=== PATIENT | female | born 1945 | race Hispanic/Latino ===

== ENCOUNTER 2017-01-29 14:59 | Emergency (ER) | payer MEDICARE, BC ==
[2017-01-29 15:41] LABS: #Eosinphils 0.1 thou/uL (0.0-0.7); #Lymphocytes 1.9 thou/uL (1.20-3.40); #Monocytes 0.7 thou/uL (0.11-0.59); #Neutrophils 7.8 thou/uL (1.40-6.50); %Basophils 0.3 % (0.0-1.0); %Eosinophils 0.8 % (0.0-10.0); %Lymphocytes 18.4 % (21.0-51.0); %Monocytes 6.2 % (0.0-10.0); Hematocrit 47.8 % (36.0-47.0); Red Blood Cell (RBC) Count 5.02 mill/uL (4.20-5.40); White Blood Cell (WBC) Count 10.5 thou/uL (4.8-10.8)
--- NOTE | 2017-01-29 15:58 | RAD ---
PORTABLE CHEST ONE VIEW: 01/29/17 at 3:45 p.m. HISTORY: Bodyaches, chills, nausea. FINDINGS: The heart size is normal. There is a right subclavian Port-A-Cath with tip in the projection of the SVC. No focal areas of consolidation or pneumothorax or pleural effusions are seen. IMPRESSION: No radiographic evidence of acute cardiopulmonary process. POS: OFF
[2017-01-29 16:05] LABS: ALT (SGPT) 89 U/L (8-55); AST (SGOT) 125 U/L (5-34); Alkaline Phosphatase 137 U/L (40-150); Anion Gap 17 mmol/L (10-20); BUN (Urea Nitrogen) 18 mg/dL (9.8-20.1); Bilirubin, Total 0.8 mg/dL (0.2-1.2); CK (CPK) 38 U/L (29-168); Calc. Creatinine Clearance 0 mL/min (70-130); Calcium 10.3 mg/dL (7.8-10.44); Carbon Dioxide 20 mmol/L (23-31); Chloride 100 mmol/L (98-107); Estimated GFR-MDRD 43; Globulin 4.2 g/dL (2.4-3.5); Lipase 37 U/L (8-78); Protein, Total 8.5 g/dL (6.0-8.3)
[2017-01-29 16:09] LABS: Troponin I Less than 0.010 ng/mL (< 0.028)
[2017-01-29 17:57] LABS: Bilirubin Negative (Negative); Blood, Urine Negative (Negative); Glucose, Urine (Dipstick) >=1000 mg/dL (Negative); Ketone, Urine Negative (Negative); Nitrite Positive (Negative); Protein, Urine (Dipstick) 30 mg/dL (Neg-Trace); Urobilinogen 0.2 mg/dL (0.2-1.0)
[2017-01-29 17:59] LABS: Bacteria/HPF 4+ HPF (None Seen); Hyaline Casts/LPF 0-3 HYALINE CAST LPF (0-3 Hyaline); RBC/HPF 0-3 HPF (0-3); Squamous Epithelial 0-3 HPF (0-3)
[2017-01-29] MEDS ORDERED: Cephalexin 250 MG CAP ONE (18:47)
== END 2017-01-29 19:00 | disposition home or self-care (01) ==
LOC: ERS 14:59
DX: N39.0 Urinary tract infection, site not specified (principal); E11.9 Type 2 diabetes mellitus without complications; E03.9 Hypothyroidism, unspecified; E78.5 Hyperlipidemia, unspecified; I10 Essential (primary) hypertension; Z85.038 Personal history of other malignant neoplasm of large intestine
CPT/HCPCS: 36415; 71010; 80053; 81003; 81015; 82010; 82553; 83605; 83690; 83880; 84484; 85025; 87040; 87077; 87086; 87186; 93005; 96360; 96361

== ENCOUNTER 2018-09-08 12:20 | Emergency (ER) | payer MEDICARE, BC ==
--- NOTE | 2018-09-08 13:43 | RAD ---
PA CHEST AND LEFT RIB SERIES: HISTORY: Fall. Right-sided rib pain, chest pain FINDINGS: There is a right-sided Port-A-Cath with tip in the projection of the SVC. The heart size is normal. T he lungs are well expanded without focal areas of consolidation, pneumothoraces or pleural effusions. There are postoperative changes and metallic hardware in the lower thoracic and lumbar spi ne. THERE IS A FRACTURE INVOLVING THE LEFT SIXTH RIB.
[2018-09-08 13:47] LABS: #Eosinphils 0.2 thou/uL (0.0-0.7); #Lymphocytes 1.7 thou/uL (1.20-3.40); #Monocytes 0.8 thou/uL (0.11-0.59); #Neutrophils 7.2 thou/uL (1.40-6.50); %Basophils 0.4 % (0.0-1.0); %Eosinophils 1.7 % (0.0-10.0); %Monocytes 7.7 % (0.0-10.0); %Neutrophils 73.2 % (42.0-75.0); Hemoglobin 14.2 g/dL (12.0-16.0); Mean Corpuscular HGB CONC 33.3 g/dL (32.0-36.0); Mean Corpuscular Hemoglobin 32.2 pg (27.0-31.0); Mean Corpuscular Volume 96.7 fL (78.0-98.0); Mean Platelet Volume 10.3 fL (7.4-10.4); Platelet Count 189 thou/uL (130-400); RBC Distribution Width 12.1 % (11.5-14.5); Red Blood Cell (RBC) Count 4.43 mill/uL (4.20-5.40); White Blood Cell (WBC) Count 9.8 thou/uL (4.8-10.8)
[2018-09-08 14:02] LABS: ALT (SGPT) 47 U/L (8-55); AST (SGOT) 44 U/L (5-34); Alkaline Phosphatase 142 U/L (40-150); Anion Gap 13 mmol/L (10-20); BUN (Urea Nitrogen) 32 mg/dL (9.8-20.1); Bilirubin, Total 0.5 mg/dL (0.2-1.2); Calc. Creatinine Clearance 0 mL/min (70-130); Calcium 10.3 mg/dL (7.8-10.44); Carbon Dioxide 25 mmol/L (23-31); Chloride 98 mmol/L (98-107); Estimated GFR-MDRD 42; Glucose 303 mg/dL (83-110); Sodium 131 mmol/L (136-145)
[2018-09-08] MEDS ORDERED: Morphine 4 MG/ML VIAL ONE (15:54)
[2018-09-08] MEDS ORDERED: Ketorolac Tromethamine 60 MG/2 ML VIAL ONE (15:54)
== END 2018-09-08 16:15 | disposition home or self-care (01) ==
LOC: ERS 12:20
DX: S22.32XA Fracture of one rib, left side, initial encounter for closed fracture (principal); E11.9 Type 2 diabetes mellitus without complications; E03.9 Hypothyroidism, unspecified; E78.5 Hyperlipidemia, unspecified; I10 Essential (primary) hypertension; W01.0XXA Fall on same level from slipping, tripping and stumbling without subsequent striking against object, initial encounter
CPT/HCPCS: 36415; 80053; 85025; 93005; 96372; J1885; J2270

== ENCOUNTER 2019-05-15 11:26 | Emergency (ER) | payer MEDICARE, BC ==
[2019-05-15 12:26] LABS: #Eosinphils 0.2 thou/uL (0.0-0.7); #Lymphocytes 1.5 thou/uL (1.20-3.40); #Monocytes 0.5 thou/uL (0.11-0.59); #Neutrophils 4.4 thou/uL (1.40-6.50); %Basophils 0.7 % (0.0-1.0); %Eosinophils 3.7 % (0.0-10.0); %Monocytes 7.2 % (0.0-10.0); %Neutrophils 66.4 % (42.0-75.0); Hemoglobin 13.9 g/dL (12.0-16.0); Mean Corpuscular HGB CONC 33.5 g/dL (32.0-36.0); Mean Corpuscular Hemoglobin 31.4 pg (27.0-31.0); Mean Corpuscular Volume 93.6 fL (78.0-98.0); Mean Platelet Volume 9.5 fL (7.4-10.4); Platelet Count 156 thou/uL (130-400); RBC Distribution Width 12.7 % (11.5-14.5); Red Blood Cell (RBC) Count 4.44 mill/uL (4.20-5.40); White Blood Cell (WBC) Count 6.6 thou/uL (4.8-10.8)
[2019-05-15 12:42] LABS: ALT (SGPT) 35 U/L (8-55); AST (SGOT) 36 U/L (5-34); Albumin 3.9 g/dL (3.4-4.8); Alkaline Phosphatase 97 U/L (40-110); Anion Gap 15 mmol/L (10-20); BUN (Urea Nitrogen) 21 mg/dL (9.8-20.1); Bilirubin, Total 0.5 mg/dL (0.2-1.2); Calc. Creatinine Clearance 0 mL/min (70-130); Calcium 9.8 mg/dL (7.8-10.44); Carbon Dioxide 26 mmol/L (23-31); Chloride 100 mmol/L (98-107); Estimated GFR-MDRD 50; Globulin 3.4 g/dL (2.4-3.5); Glucose 161 mg/dL (83-110); Potassium 4.5 mmol/L (3.5-5.1); Protein, Total 7.3 g/dL (6.0-8.3); Sodium 136 mmol/L (136-145)
[2019-05-15 13:00] LABS: Bacteria/HPF 2+ HPF (None Seen); Bilirubin Negative (Negative); Blood, Urine Negative (Negative); Clarity Turbid (Clear); Glucose, Urine (Dipstick) Greater than 1000 mg/dL (Negative); Leukocyte 500 Leu/uL (Negative); Nitrite Negative (Negative); Protein, Urine (Dipstick) Negative (Neg-Trace); RBC/HPF 0-3 HPF (0-3); Squamous Epithelial None Seen HPF (0-3); Urobilinogen Normal mg/dL (Less than 2); WBC/HPF Greater than 50 HPF (0-3)
--- NOTE | 2019-05-15 13:39 | CT ---
EXAM: CT Lumbar Spine WO Con PROVIDED CLINICAL HISTORY: Back pain COMPARISON: 12/19/2016 FINDINGS: Extensive postoperative and degenerative changes involving the lumbar spine are redemonstrated, stabl e. There is no evidence for an acute fracture. There is stable central canal stenosis at L1-2 and stable foraminal narrowing most conspicuous bilaterally at L5-S1. IMPRESSION: No evidence for an acute fracture.
[2019-05-15] MEDS ORDERED: cefTRIAXone\\ROCEPHIN 1 GM VIAL ONE (14:10)
[2019-05-15] MEDS ORDERED: HYDROcodone/Acetaminophen 10/325 mg Tablet ONE (14:23)
== END 2019-05-15 15:29 | disposition home or self-care (01) ==
LOC: ERS 11:26
DX: N39.0 Urinary tract infection, site not specified (principal); R53.1 Weakness; M54.5 Low back pain; E11.9 Type 2 diabetes mellitus without complications; E03.9 Hypothyroidism, unspecified; E78.5 Hyperlipidemia, unspecified; E78.00 Pure hypercholesterolemia, unspecified; I10 Essential (primary) hypertension
CPT/HCPCS: 72131; 80053; 81003; 81015; 85025; 87077; 87086; 87186; 96365; J0696

== ENCOUNTER 2019-05-23 10:58 | Observation (INO) | payer MEDICARE, BC ==
[2019-05-23] MEDS ORDERED: Morphine 4 MG/ML VIAL ONE (12:04)
[2019-05-23] MEDS ORDERED: Ondansetron PF 4 MG/2 ML Vial ONE (12:04)
[2019-05-23 12:23] LABS: #Basophils 0.1 thou/uL (0.0-0.2); #Eosinphils 0.2 thou/uL (0.0-0.7); #Lymphocytes 1.3 thou/uL (1.20-3.40); #Monocytes 0.6 thou/uL (0.11-0.59); %Basophils 0.8 % (0.0-1.0); %Lymphocytes 14.2 % (21.0-51.0); %Monocytes 6.6 % (0.0-10.0); %Neutrophils 76.4 % (42.0-75.0); Hemoglobin 14.4 g/dL (12.0-16.0); Mean Corpuscular HGB CONC 32.8 g/dL (32.0-36.0); Mean Corpuscular Hemoglobin 31.1 pg (27.0-31.0); Mean Corpuscular Volume 94.7 fL (78.0-98.0); Mean Platelet Volume 10.2 fL (7.4-10.4); Platelet Count 152 thou/uL (130-400); RBC Distribution Width 12.9 % (11.5-14.5); Red Blood Cell (RBC) Count 4.63 mill/uL (4.20-5.40); White Blood Cell (WBC) Count 9.1 thou/uL (4.8-10.8)
[2019-05-23 12:52] LABS: ALT (SGPT) 36 U/L (8-55); AST (SGOT) 43 U/L (5-34); Alkaline Phosphatase 102 U/L (40-110); Anion Gap 14 mmol/L (10-20); BUN (Urea Nitrogen) 25 mg/dL (9.8-20.1); Bilirubin, Total 0.4 mg/dL (0.2-1.2); Calc. Creatinine Clearance 0 mL/min (70-130); Calcium 9.8 mg/dL (7.8-10.44); Carbon Dioxide 27 mmol/L (23-31); Chloride 98 mmol/L (98-107); Estimated GFR-MDRD 52; Globulin 3.7 g/dL (2.4-3.5); Glucose 296 mg/dL (83-110); Lipase 29 U/L (8-78); Potassium 4.1 mmol/L (3.5-5.1); Protein, Total 7.7 g/dL (6.0-8.3); Sodium 135 mmol/L (136-145)
--- NOTE | 2019-05-23 13:08 | RAD ---
EXAM: 2 views of the left hip HISTORY: Left hip pain COMPARISON: 12/18/2016 FINDINGS: 2 views of the left hip shows no evidence of acute fracture or dislocation. No degenerative changes are seen. No soft tissue swelling is present. Hardware seen in the lumbar spine. IMPRESSION: No evidence of acute osseous abnormality.
--- NOTE | 2019-05-23 13:11 | RAD ---
EXAM: 2 views of the right hip HISTORY: Right hip pain COMPARISON: None FINDINGS: 2 views of the right hip shows no evidence of acute fracture or dislocation. No degenerativ e changes are seen. No soft tissue swelling is present. Hardware seen in the lumbar spine. IMPRESSION: No evidence of acute osseous abnormality.
--- NOTE | 2019-05-23 13:11 | RAD ---
EXAM: 4 views of the left knee HISTORY: Knee pain COMPARISON: None FINDINGS: No knee effusion is seen. There is no evidence of acute fracture or dislocation. No signifi cant degenerative changes are seen. No soft tissue swelling is present. IMPRESSION: No evidence of acute osseous abnormality.
[2019-05-23 16:24] LABS: Bilirubin Negative (Negative); Blood, Urine Negative (Negative); Clarity Clear (Clear); Glucose, Urine (Dipstick) Greater than 1000 mg/dL (Negative); Leukocyte 75 Leu/uL (Negative); Nitrite 1+ (Negative); Protein, Urine (Dipstick) Negative (Neg-Trace); RBC/HPF 0-3 HPF (0-3); Squamous Epithelial 0-3 HPF (0-3); Urobilinogen Normal mg/dL (Less than 2)
[2019-05-23 16:33] LABS: Bacteria/HPF 3+ HPF (None Seen)
[2019-05-23] MEDS ORDERED: Ketorolac Tromethamine 30 MG/ML VIAL ONE (16:40)
[2019-05-23] MEDS ORDERED: Sulfameth/Trimethoprim DS 800-160mg TAB ONE ×2 (16:57→17:02)
[2019-05-23] MEDS ORDERED: MEROPENEM 1 GM/50 ML 1 GM in Premix Bag 1 BAG IVPB SCH (18:45)
[2019-05-24 01:26] VITALS: BMI 37.2
[2019-05-24] MEDS ORDERED: Sodium Chloride 0.9% 1,000 ML IV SCH (03:57)
[2019-05-24] MEDS ORDERED: MEROPENEM 1 GM/50 ML 1 GM in Premix Bag 1 BAG IVPB SCH ×2 (04:00→22:00)
[2019-05-24] MEDS: HYDROcodone/Acetaminophen 10/325 mg Tablet PO PRN ×4 (04:20→18:41)
[2019-05-24 15:27] VITALS: BP 122/77; TEMP 98.4
[2019-05-24] MEDS ORDERED: HYDROcodone/Acetaminophen 10/325 mg Tablet PO PRN (15:47)
--- NOTE | 2019-05-24 15:57 | PDOC.EVN ---
Event Note - Event Note Event Note: pt admitted for fall and UTI u grecia E.coli, sensitivity pending. received merum last night. on ceftriaxone now until sensitivity back. meanwhile, there is a plan to transfer her to inpt rehab. Request inpt rehab physician to follow with grecia result and titrate the abx. H & P dictated. [id number].
[2019-05-24] MEDS ORDERED: cefTRIAXone\\ROCEPHIN 1 GM in Sodium Chloride 0.9% 100 ML IVPB SCH (16:00)
[2019-05-24] MEDS ORDERED: Rosuvastatin 10 MG TAB PO SCH (21:00)
[2019-05-24] MEDS ORDERED: Pregabalin 75 MG CAP PO SCH (21:00)
[2019-05-24] MEDS ORDERED: tiZANidine HCl 4 MG TAB PO SCH (21:00)
--- NOTE | 2019-05-24 23:26 | HP ---
CHIEF COMPLAINT: Fall. HISTORY OF PRESENT ILLNESS: A 73-year-old female with history of type 2 diabetes mellitus, hypertension, and history of colon cancer status post colectomy in 2016 and completed her chemo in July 2017, presenting with the fall. Roughly a week ago, she had an accidental fall and at that time, she came to the ER and discharged with antibiotics for urinary tract infection. Since then, she was not getting better. She had a repeated fall 3 times this week. The patient has no history of stroke in the past. No fever, cough, chest pain or short of breath or headache or blurriness. She is now admitted with fall and UTI. REVIEW OF SYSTEMS: Complete review of systems reviewed with the patient and pertinence addressed in history of present illness. She does not have any recent fever, night sweats, or chills. No productive cough, chest pain, orthopnea, PND , or lower extremity edema. No abdominal pain, nausea, vomiting, constipation, or diarrhea. Denies any headache or blurriness. ALLERGIES: SHE HAS NO KNOWN DRUG ALLERGIES. MEDICATIONS: She is on; 1. Cilostazol 100 mg daily. 2. Cymbalta 60 mg at bedtime. 3. Glipizide 10 mg twice a day. 4. Lisinopril hydrochlorothiazide 10/12.5 mg daily. 5. Levothyroxine 50 mcg daily. 6. Pantoprazole sodium 40 mg daily. 7. Pregabalin 75 mg twice a day. 8. Crestor 10 mg daily. 9. Tizanidine unknown dose at bedtime. SOCIAL HISTORY: The patient does not smoke or drink alcohol. PAST MEDICAL HISTORY: Type 2 diabetes mellitus, hypertension, history of colon cancer diagnosed in Aug, 2016 and completed chemo in July,. PAST SURGICAL HISTORY: Colon dissection. PHYSICAL EXAMINATION: VITAL SIGNS: Temperature 98.4, pulse 98, blood pressure is 107/67, saturating 100% in the room air. GENERAL: The patient is alert, oriented x4. She is slightly on the obese side. Very pleasant, conversational, spouse at the bedside. CARDIOVASCULAR: Regular rate and rhythm without murmurs, rubs, or gallops. LUNGS: Clear to auscultation bilaterally without wheezing, rales, or rhonchi. ABDOMEN: Soft, nontender, nondistended. Good bowel sounds. EXTREMITIES: Her upper extremity strength and sensation grossly intact. Lower extremities; left lower leg 1/5 in strength. Able to lift her right leg against gravity. NEUROLOGIC: Cranial nerves 2 through 12 grossly intact. No dysarthria. No nystagmus. PSYCHIATRIC: Appropriate mood and affect. LABORATORY DATA: CMP in the normal range. Troponin 0.01. Lipase 29. CBC in the normal range. UA showed glucosuria as well as esterase and nitrite positive and 3+ bacteria. Knee x-ray showed no evidence of acute osseous abnormality. Hip x-ray showed also no evidence of fracture or subluxation. IMPRESSION AND PLAN: This is a 73-year-old female with a frequent fall and urinary tract infection, admitted for observation. She received a dose of Merrem during admission. Physical therapy evaluated her. Planned for inpatient rehab. Urinary tract infection. Her UA already grew Escherichia coli. She has no previous history of urinary tract infection other than remotely during the time of chemo. So, we will give her ceftriaxone and follow the urine culture results. Type 2 diabetes mellitus. Continue with the home regimen as well as sliding scale and diabetic diet. The patient likely to be transferred to inpatient rehab. I request the rehab physician to follow the urine culture results and sensitivity, currently growing Escherichia coli sensitivity pending. She will be on ceftriaxone 1 g daily. Rest of the management based on the clinical course at the rehab. Job ID: [id number] [facility]
[2019-05-25] MEDS ORDERED: Levothyroxine Sodium 50 MCG TAB PO SCH (06:00)
[2019-05-25] MEDS ORDERED: Cilostazol 100 MG TAB PO SCH (09:00)
[2019-05-25] MEDS ORDERED: DULoxetine 60 MG CAP PO SCH (09:00)
[2019-05-25] MEDS ORDERED: Empagliflozin [Jardiance] 25 MG PO SCH (09:00)
[2019-05-25] MEDS ORDERED: Lisinopril/Hydrochlorothiazide 10 mg/12.5 mg Tablet PO SCH (09:00)
== END 2019-05-24 19:15 ==
LOC: ERS 10:58 → SURG A 05-24 00:49
PROVIDERS: ADMIT Hospitalist; ATTEND Hospitalist
DX: N39.0 Urinary tract infection, site not specified (principal); B96.20 Unspecified Escherichia coli [E. coli] as the cause of diseases classified elsewhere; E11.9 Type 2 diabetes mellitus without complications; I10 Essential (primary) hypertension; E03.9 Hypothyroidism, unspecified; Z85.038 Personal history of other malignant neoplasm of large intestine; Z91.81 History of falling; Z79.84 Long term (current) use of oral hypoglycemic drugs; Z79.899 Other long term (current) drug therapy; Z90.49 Acquired absence of other specified parts of digestive tract
CPT/HCPCS: 73502 ×2; 73564; 80053; 82962; 83690; 84484; 85025; 87077; 87086; 87186; 93005; 96361 ×2; 96365; 96366; 96375 ×2; 97139; 99285; G0378 ×3; 36416; 81003; 81015; J0696; J1885; J2185; J2270; J2405; J3490

== ENCOUNTER 2019-06-30 16:11 | Inpatient (IN) | payer MEDICARE, BC ==
[2019-06-30 16:51] LABS: #Basophils 0.1 thou/uL (0.0-0.2); #Eosinphils 0.3 thou/uL (0.0-0.7); #Lymphocytes 1.9 thou/uL (1.20-3.40); #Monocytes 0.7 thou/uL (0.11-0.59); #Neutrophils 4.7 thou/uL (1.40-6.50); %Basophils 0.8 % (0.0-1.0); %Eosinophils 4.1 % (0.0-10.0); %Lymphocytes 24.7 % (21.0-51.0); %Monocytes 8.5 % (0.0-10.0); %Neutrophils 61.9 % (42.0-75.0); Hemoglobin 14.1 g/dL (12.0-16.0); Mean Corpuscular Hemoglobin 31.8 pg (27.0-31.0); Mean Corpuscular Volume 96.4 fL (78.0-98.0); Mean Platelet Volume 8.9 fL (7.4-10.4); Platelet Count 236 thou/uL (130-400); RBC Distribution Width 13.1 % (11.5-14.5); Red Blood Cell (RBC) Count 4.44 mill/uL (4.20-5.40); White Blood Cell (WBC) Count 7.7 thou/uL (4.8-10.8)
[2019-06-30 17:02] LABS: INR-International Normal Ratio 0.9; Prothrombin Time 12.4 SEC (12.0-14.7)
[2019-06-30 17:03] LABS: PTT 28.7 SEC (22.9-36.1)
[2019-06-30 17:16] LABS: ALT (SGPT) 22 U/L (8-55); AST (SGOT) 31 U/L (5-34); Albumin 4.1 g/dL (3.4-4.8); Alkaline Phosphatase 103 U/L (40-110); Anion Gap 16 mmol/L (10-20); BUN (Urea Nitrogen) 18 mg/dL (9.8-20.1); Bilirubin, Total 0.5 mg/dL (0.2-1.2); Calc. Creatinine Clearance 0 mL/min (70-130); Calcium 9.7 mg/dL (7.8-10.44); Carbon Dioxide 22 mmol/L (23-31); Chloride 101 mmol/L (98-107); Estimated GFR-MDRD 46; Globulin 3.8 g/dL (2.4-3.5); Glucose 136 mg/dL (83-110); Protein, Total 7.9 g/dL (6.0-8.3); Sodium 135 mmol/L (136-145)
[2019-06-30] MEDS ORDERED: Morphine 4 MG/ML VIAL ONE ×2 (17:27→19:14)
[2019-06-30] MEDS ORDERED: Ondansetron PF 4 MG/2 ML Vial ONE (17:27)
--- NOTE | 2019-06-30 22:02 | CON ---
DATE OF CONSULTATION: 06/30/2019 CHIEF COMPLAINT: Low back pain, impaired mobility, bilateral lower extremity pain and paresthesias. HISTORY OF PRESENT ILLNESS: Ms. Hurley is a very pleasant 73-year-old female who presented to the emergency department today for evaluation of the above complaints. The patient's family members are at bedside and provide additional history. The patient reports that she has had increased leg weakness, numbness, and pain over the last month and a half. She states that approximately a month and half ago, she incurred 2 falls due to her legs giving out. After her 2nd fall, she presented for evaluation and had a CT of the lumbar spine completed that showed hardware in place, but no acute abnormalities. The patient was referred to Dr. Elmore for further outpatient evaluation and has appointment scheduled for june. The patient has previously seen Dr. Elmore for surgical management, with most recent surgery being an L1-L2 laminectomy decompression and extension of prior fusion in 2014. The patient states that she has had a total of 4 lumbar surgeries. Her 1st fusion surgery was in 2005 and she reports that her hardware placed at that time is not MRI compatible. The patient was admitted to the hospital in mid April for falls and urinary tract infection. She was treated with antibiotics and then discharged to [facility]. She states that she was at [facility] for approximately 2 weeks and then transferred to a facility in [place] for further inpatient rehab and physical therapy. She remains at this facility currently. Prior to a month and a half ago, patient was ambulating without difficulty. Since then, her leg weakness has caused her to no longer be able to walk, stating her legs give out from underneath her. At rehab, she has only been able to stand with assistance and only take a few steps. She cannot walk more than a few feet. Currently, she reports pain across her lower back and into her bilateral hip. The pain radiates into both legs, localized to the anterior thighs and mendez. She also reports left greater than right leg weakness. She reports nondermatomal numbness throughout her right leg, as well as numbness from the knee down in her left leg. The patient states that over this time frame, she has also had urinary incontinence, but no bowel incontinence. She has been wearing diapers for this. PHYSICAL EXAMINATION: VITAL SIGNS: On exam, the patient is awake, alert, and appropriate, A and O x3. MUSCULOSKELETAL: The patient exhibits midline tenderness to palpation of her cervical, thoracic, and lumbar spines. She also exhibits to bilateral paralumbar tenderness to palpation across her lower back. Strength testing of the legs is quite limited secondary to pain, however, patient seems to exhibit good strength in both legs despite pain with range of motion. No significant weakness noted. The patient has good strength with dorsiflexion and plantar flexion of both feet. Sensation to light touch is intact and equal in her bilateral lower extremities. The patient has positive straight leg raise at 30 degrees on the left and 45 degrees on the right. Gait was not tested. PAST MEDICAL HISTORY: Includes diabetes mellitus, hypertension, hypothyroidism, colon cancer, obesity. PAST SURGICAL HISTORY: Total of 4 prior lumbar spine surgeries including fusion with hardware placement, cholecystectomy, colectomy, tubal ligation. ALLERGIES: NO KNOWN DRUG ALLERGIES REPORTED. IMPRESSION/DIAGNOSES: 1. Low back pain with gait disturbance and bilateral leg pain and paresthesias. 2. History of multiple lumbar surgeries with instrumented fusion. 3. Recent urinary tract infection, treated with antibiotics. 4. Diabetes mellitus. 5. Hypertension. 6. Hypothyroidism. 7. History of colon cancer, treated with colectomy and chemotherapy. PLAN: At this time, I have discussed this case and reviewed recent imaging with Dr. Nieves. The patient had a CT of the lumbar spine completed on 05/15/2019 that showed a hardware in place from L1-S1. No evidence for acute fractures or other acute abnormalities. The patient's symptoms have persisted and worsened over the last month and a half since her CT scan was completed. She has not experienced significant improvement over the past week's inpatient rehab with intensive therapies. At this time, recommend be admitted to the medical floor for pain control, medical management, and further workup to evaluate, if neurosurgical intervention is necessary. The patient states that she is unable to obtain an MRI of the lumbar spine given her lumbar hardware placed in 2005 is not MRI compatible. I have ordered a CT myelogram of the lumbar spine to be completed for further evaluation. The patient and her family members were informed of this plan. They state understanding and all questions have been answered at this time. Our team will re-evaluate the patient in the morning and await CT myelogram findings. Please call for any neurologic changes or other concerns. This was a 50 minute initial consult note in which greater than 50% of the time was spent in review of records, imaging, evaluation, examination of the patient, and formulation of plan. The remaining time was spent in counseling and coordination of care. Job ID: [id number]
[2019-06-30 22:12] LABS: Bilirubin Negative (Negative); Blood, Urine Negative (Negative); Clarity Clear (Clear); Glucose, Urine (Dipstick) Greater than 1000 mg/dL (Negative); Leukocyte Negative Leu/uL (Negative); Nitrite Negative (Negative); Protein, Urine (Dipstick) Negative (Neg-Trace); Urobilinogen Normal mg/dL (Less than 2)
[2019-06-30 22:51] VITALS: BMI 37.5
[2019-07-01] MEDS ORDERED: Acetaminophen 650 MG Suppository PR PRN (00:32)
[2019-07-01] MEDS ORDERED: Acetaminophen 325 MG TAB PO PRN (00:32)
[2019-07-01] MEDS ORDERED: Dextrose 50% Abboject 50 ML SYRINGE SLOW IVP PRN (00:35)
[2019-07-01] MEDS ORDERED: Dextrose 5% in Water 1,000 ML IV PRN (00:35)
[2019-07-01] MEDS ORDERED: Pregabalin 75 MG CAP PO SCH (00:45)
[2019-07-01] MEDS: HYDROcodone/Acetaminophen 5/325 mg Tablet PO PRN ×7 (00:57→23:37)
[2019-07-01] MEDS: Sodium Chloride 0.9% 1,000 ML IV SCH ×2 (00:58→20:04)
--- NOTE | 2019-07-01 01:58 | HP ---
TIME OF ASSESSMENT: 0. PRIMARY CARE PHYSICIAN: Dr. Selam Gilbert. CHIEF COMPLAINT: Back pain and urinary incontinence. HISTORY OF PRESENT ILLNESS: Ms. Hurley is a 73-year-old woman who presents to the emergency department with complaints of persisting low back pain and lower extremity pain with weakness and numbness. The patient states she has long-standing history of peripheral neuropathy, however, the weakness in her legs has continued to worsen. She has had multiple falls in the last 2 to 3 months. She was last seen in the emergency department on 05/15/2019 and 05/24/2019, due to falls. The patient states she was told she had a urinary tract infection which was treated after the 1st visit. When she returned a second time, she states she was told she needed a different kind of antibiotic and did undergo imaging studies that showed no acute fractures. The patient was referred to outpatient rehab in [place] and she states she has been unable to walk for the last month. She has been using a wheelchair to get around and when she does stand, she feels as though her legs were going to give out underneath her. Reports having a fall on Friday, states she stood up and fell to her knees. Reports having urinary incontinence, but does not recall since one. States she has numbness in the groin, but no numbness or tingling in the buttocks or perirectal region. She has not had any issues with urinary incontinence. She has a history of chronic back pain and has had back surgeries in the past. ED COURSE: In the emergency department, she underwent laboratory studies showing a white count of 7.7, hemoglobin of 14.1, hematocrit 42.8, platelets 236. Sodium 135, potassium 4.1, BUN 18, creatinine 1.16, GFR 46. Glucose 136. LFTs unremarkable. She had urinalysis done showing glucose greater than 1000 and otherwise, negative. Her pain was treated with 4 mg of morphine IV x2. She was also given Zofran for nausea. Her case was discussed with Neurosurgery. She was evaluated by Neurosurgery and due to history of lumbar hardware that is not MRI compatible, a CT myelogram of the lumbar spine was ordered. The patient was recommended to be admitted under our service given her comorbidities. PAST MEDICAL HISTORY: 1. Diabetes type 2. 2. Hypothyroidism. 3. Hyperlipidemia. 4. Hypertension. 5. History of colon cancer, completed chemotherapy in June 2016. 6. Chronic back pain. PAST SURGICAL HISTORY: 1. Colon resection. 2. Cholecystectomy. 3. Back surgery x4. 4. Tubal ligation. SOCIAL HISTORY: The patient has been mobilizing with the use of a wheelchair. She lives with family. Reports social alcohol consumption. Denies any tobacco use or illicit drug use. FAMILY HISTORY: Noncontributory. ALLERGIES: NO KNOWN DRUG ALLERGIES. CURRENT MEDICATIONS: 1. Levothyroxine. 2. Celecoxib. 3. Pantoprazole. 4. Lisinopril/hydrochlorothiazide. 5. Cilostazol. 6. Glipizide. 7. Hydrocodone/acetaminophen. 8. Pregabalin. 9. Rosuvastatin. 10. Duloxetine. 11. Jardiance. 12. Tizanidine. PHYSICAL EXAMINATION: GENERAL: The patient appears well developed, well nourished, is in no acute distress. VITAL SIGNS: Temperature 97.8, pulse 97, blood pressure 112/64, respirations 18, O2 saturation 96% on room air. HEENT: Normocephalic and atraumatic. Pupils are equal, round, reactive to light. Sclerae without icterus. Oropharynx is clear. NECK: Supple. LUNGS: Clear to auscultation bilaterally without any wheezes, rales, or rhonchi. CARDIAC: Regular rate and rhythm. ABDOMEN: Soft, obese, nontender, nondistended. Normoactive bowel sounds present. No guarding or rigidity. No renal angle tenderness. EXTREMITIES: No lower extremity edema. Mechanical SCDs in place. Peripheral pulses equal bilaterally. NEUROLOGIC: Alert and oriented x3. The patient with reduced sensation involving both lower extremities. She has diffuse tenderness to the lower extremities. She is able to raise both legs, unable to plantarflex and extend against resistance, though somewhat limited due to the pain in her legs. Strength appears to be intact. Able to straight leg raise bilaterally, however, slightly more limited on the right. SKIN: Warm and dry. INVESTIGATIONS: As mentioned above in HPI. IMPRESSION AND PLAN: Ms. Hurley is a 73-year-old woman presenting with back pain, lower extremity pain, worsening weakness, and urinary incontinence, being admitted for management of the followin. Low back pain with associated urinary incontinence. The patient is seen by Neurosurgery and has a known history of lumbar surgeries with MRI incompatible hardware. CT myelogram ordered. Further recommendations as per Surgery. We will obtain a bladder scan to ensure she is not retaining urine and requiring [place] catheter. Per Dr. Cano . 2. Hypertension. Monitor blood pressure. Resume home medications once verified. 3. Diabetes mellitus. Monitor blood glucose and resume home medications once verified. The patient will be kept n.p.o. by Surgery; therefore, we will likely hold her home medications and cover with sliding scale. 4. Hypothyroidism. Check TSH with morning labs. Resume home medications once verified. 5. History of colon cancer, treated with colectomy and chemotherapy. 6. Gastrointestinal prophylaxis. Resume pantoprazole which she takes at home. 7. Deep venous thrombosis prophylaxis. The patient has mechanical SCDs in place. 8. Code status, full. Surrogate decision maker is her daughter, Barbara Hurley. Case discussed with attending who agrees with plan of care as described above. Job ID: [id number]
[2019-07-01] MEDS: Levothyroxine Sodium 50 MCG TAB PO SCH (05:12)
[2019-07-01 05:29] LABS: #Basophils 0.1 thou/uL (0.0-0.2); #Eosinphils 0.3 thou/uL (0.0-0.7); #Lymphocytes 1.2 thou/uL (1.20-3.40); #Monocytes 0.5 thou/uL (0.11-0.59); #Neutrophils 3.7 thou/uL (1.40-6.50); %Basophils 1.1 % (0.0-1.0); %Eosinophils 4.5 % (0.0-10.0); %Lymphocytes 21.4 % (21.0-51.0); %Monocytes 8.3 % (0.0-10.0); %Neutrophils 64.8 % (42.0-75.0); Hemoglobin 12.1 g/dL (12.0-16.0); Mean Corpuscular HGB CONC 31.7 g/dL (32.0-36.0); Mean Corpuscular Hemoglobin 30.6 pg (27.0-31.0); Mean Corpuscular Volume 96.4 fL (78.0-98.0); Mean Platelet Volume 8.8 fL (7.4-10.4); Platelet Count 188 thou/uL (130-400); Red Blood Cell (RBC) Count 3.97 mill/uL (4.20-5.40); White Blood Cell (WBC) Count 5.7 thou/uL (4.8-10.8)
[2019-07-01 05:51] LABS: Anion Gap 10 mmol/L (10-20); BUN (Urea Nitrogen) 20 mg/dL (9.8-20.1); Calc. Creatinine Clearance 75 mL/min (70-130); Calcium 9.1 mg/dL (7.8-10.44); Carbon Dioxide 27 mmol/L (23-31); Chloride 102 mmol/L (98-107); Estimated GFR-MDRD 70; Glucose 140 mg/dL (83-110); Potassium 4.1 mmol/L (3.5-5.1); Sodium 135 mmol/L (136-145)
[2019-07-01] MEDS: Cilostazol 100 MG TAB PO SCH (08:42)
[2019-07-01] MEDS: DULoxetine 60 MG CAP PO SCH (08:42)
[2019-07-01] MEDS: Lisinopril/Hydrochlorothiazide 10 mg/12.5 mg Tablet PO SCH (08:43)
[2019-07-01] MEDS: Pregabalin 75 MG CAP PO SCH ×2 (08:47→20:02)
--- NOTE | 2019-07-01 09:25 | PRG ---
DATE OF SERVICE: 07/01/2019 SUBJECTIVE: The patient is seen and examined at the bedside. She still complains about the pain and numbness in her both lower extremities. She is getting ready for her CT myelogram testing done this morning. She is n.p.o. OBJECTIVE: VITAL SIGNS: Blood pressure is 121/76, pulse is 92, respirations are 16, temperature is 98.0, O2 saturation is 97% on room air. HEENT: Head is atraumatic and normocephalic. Eyes are PERRLA. Sclerae are nonicteric. Oral mucosa is moist. NECK: Supple. LUNGS: Clear. HEART: S1 and S2 normal. No S3. No S4. No any murmur. ABDOMEN: Soft, nontender. Bowel sounds are present. No organomegaly. EXTREMITIES: No clubbing, cyanosis, or edema. NEUROLOGICAL: She is alert and oriented x4. There is decreased motor function in both lower extremities secondary to bilateral lower extremity pain. There are some sensory deficits in both lower extremities below both groins. She follows my commands. LABORATORY DATA: White count of 5.7, hemoglobin of 12.1, hematocrit of 38.2, platelet count is 188,000. Sodium of 135, glucose 140. The rest of chemistry within normal limits. TSH is 2.78. IMPRESSION: 1. Low back pain with gait disturbance and bilateral leg pain and paresthesias. 2. Diabetes mellitus. 3. Hypertension. 4. Hypothyroidism. 5. History of colon cancer, treated with colectomy and chemotherapy. PLAN: The patient is scheduled for a CT myelogram per Neurosurgery recommendation. We will follow up on that. We will continue p.r.n. pain management. We will get PT and OT when it is allowed per Neurosurgery. Job ID: [id number]
[2019-07-01] MEDS: HumaLOG 300 UNITS/3 ML VIAL SC PRN ×3 (12:36→21:15)
--- NOTE | 2019-07-01 13:00 | RAD ---
LUMBAR SPINE MYELOGRAM: DATE: 07/01/2019. HISTORY: Impaired mobility with low back pain and bilateral lower extremity pain/radiculopathy. FINDINGS: Thinner Sprayer imaging of the lumbar spine demonstrates extensive postoperative hardware including bilateral L 2, L3, L4, L5, and S1 pedicle screws with vertically oriented interlocking rods. There is also a pedicle screw on the left at L1 which is fractured. The left L4 pedicle screw appears lateral to the pedicle. There is severe multilevel degenerative change with multilevel disc space narrowing, degenerative end plate change, and osteophyte formation. There is also prominent disc space narrowing with degenerative endplate change vacuum disc formation and osteophyte formation at T11-12. Informed consent obtained prior to the procedure. The skin overlying the lumbar spine was prepped and draped in normal sterile fashion and anesthetized with 1% buffered lidocaine. With intermittent fluoroscopic guidance, a 22-gauge spinal needle is advanced into the thecal sac at the L5 level and r emoval of the stylet yields clear cerebrospinal fluid. Approximately 10 cc of Isovue 180 was injected, outlining nerve roots of the cauda equina and filling the thecal sac. The patient's head wa s tilted down to extend some contrast media into the upper lumbar spine. There is severe central canal stenosis with partial blockage of the contrast column at the L2 level suggesting severe underly ing stenosis. Patient tolerated the procedure well. Exposure data: One minute of fluoroscopic time, 1243.8 mGy*^m2. IMPRESSION: Severe degenerative change and multilevel postoperative change. Detailed assessment for central canal and/or neural foraminal stenosis will be better performed on CT myelogram to follow. Transcribed Date/Time: 07/01/2019 1:17 PM
[2019-07-01] MEDS ORDERED: Baclofen 10 MG TAB PO SCH (13:15)
--- NOTE | 2019-07-01 14:02 | CT ---
LUMBAR SPINE CT MYELOGRAM: Date: 07/01/2019 HISTORY: Bilateral lower extremity pain and radiculopathy. FINDINGS: Following the intrathecal administration of iodinated contrast media, axial CT imaging at 2.5 mm inte rvals obtained from the lower thoracic spine through the sacrum. Coronal and sagittal reformatted carlos ging obtained. FINDINGS: The bones appear markedly demineralized. There is mild anterolisthesis at L4-5 which measures approximately 5-6 mm. At T11-12, there is prominent disc space narrowing with prominent degenerative end plate change and v acuum disc formation, as well as disc osteophyte complex and bilateral prominent facet hypertrophy. T hese degenerative changes lead to severe central canal stenosis and severe bilateral neural foraminal stenosis at T11-12. T12-L1: Bilateral facet hypertrophy. Mild bilateral neural foraminal stenosis. No significant centra l canal stenosis. There is a remote anterior wedge compression fracture at L1 primarily involving the inferior aspect o f the L1 vertebral body with approximately 65% loss of vertebral body height anteriorly. L1-2: There is disc space narrowing and degenerative end plate change with a disc osteophyte complex . There is severe bilateral facet hypertrophy. There is severe central canal stenosis and severe bila teral neural foraminal stenosis at the L1-2 level. L2-3: Bilateral laminectomy changes are present with no significant central canal stenosis. Bilateral facet hypertrophy is present with mild/moderate bilateral neural foraminal stenosis, right greater than left. L3-4: Bilateral laminectomy change present with no significant central canal stenosis. There is disc space narrowing with mild disc bulge. No central canal stenosis. Bilateral facet hypertrophy noted, right greater than left, with mild/moderate bilateral neural foraminal stenosis. L4-5: There is disc space narrowing and mild degenerative end plate change, as well as bilateral fac et hypertrophy with mild/moderate bilateral neural foraminal stenosis. No significant central canal s tenosis. L5-S1: There is disc space narrowing with degenerative end plate change and vacuum disc formation. T here is a disc osteophyte complex with mild central canal stenosis. There is prominent bilateral face t hypertrophy with severe bilateral neural foraminal stenosis. There is extensive postoperative hardware within the lumbar spine. This includes bilateral pedicle sc rews at L2, L3, L4, L5, and S1. There are vertically oriented interlocking rods. There is fracture of the base of the screw posteriorly involving the left S1 level. The left L4 pedicle screw is located just lateral to the left pedicle. The L2 pedicle screw on the left extends into the region of the subcortical bone/intervertebral disc at the L1-2 level. The hardware also includes a left-sided pedicle screw at L1, which is fractured. There is scattered atherosclerotic calcification of the abdominal aorta and its branches, relatively mild. The imaged retroperitoneal structures appear grossly unremarkable otherwise. No acute lumbar sp ine fracture or dislocation. The anterior aspect of the L2 pedicle screw on the right extends to the level of the superior end madhu te of L2. IMPRESSION: Multilevel postoperative change as above. The L1 and S1 left-sided pedicle screws are fractured. Bila teral L2 pedicle screws extend into the region of the intervertebral disc. There is severe degenerati ve change with multilevel prominent central canal and neural foraminal stenosis. This includes severe central canal stenosis and bilateral neural foraminal stenosis at the T11-12 level, as well as the L 1-2 level. BRIE Espitia
[2019-07-01] MEDS ORDERED: Iopamidol-M 200 41% 20 ML VIAL ONE (14:45)
[2019-07-01] MEDS: Acetaminophen/Codeine 30-300mg Tablet PO PRN (17:58)
[2019-07-01] MEDS: Baclofen 10 MG TAB PO SCH (20:02)
[2019-07-01] MEDS: Rosuvastatin 10 MG TAB PO SCH (20:02)
--- NOTE | 2019-07-01 22:58 | PRG ---
DATE OF SERVICE: 07/01/2019 Ms. Hurley's condition remains stable from yesterday. She had a CT myelogram of the lumbar spine completed today. I have reviewed this with Dr. Nieves. The study showed findings of hardware instrumentation at the level of L1 through S1. Left pedicle screw is fractured. L1 compression fracture present. There is component of central canal stenosis at L1-L2. Multilevel degenerative changes and disk space narrowing present. Additionally, [id number] stenosis at the level of T11-T12 noted. Patient reports continued back and leg pain today. She states that she has been taking hydrocodone but has not experienced significant improvement of pain. There is no medication to achieve better pain control. On exam, the patient continues to have range of motion and strength testing in the legs limited secondary to pain. She has most difficulty with iliopsoas testing and bending of her knee. However, despite this there is no apparent significant weakness in her legs on strength testing. Sensation remains intact. At this time, no emergent or urgent neurosurgical intervention is indicated. We will defer the need for elective surgery to Dr. Elmore, given that he has previously performed surgery in 2015. His team will be updated with regard to the patient's current hospital course and findings. Should patient at some point require surgery, she will need to be off Pletal prior to surgery. Plan at this time will be to maximize pain control. The patient will likely return to inpatient rehab in the interim upon leaving the hospital. This was discussed with the patient and her daughters. They state understanding the current plan. We will re-evaluate the patient tomorrow. Please call for any neurologic changes or other concerns. This was a 15-minute subsequent visit in which greater than 50% of the time was spent in counseling and coordination of care. The remaining time was spent in review of records, imaging, evaluation, examination of the patient, and formulation of a plan. Job ID: [id number] [facility]
[2019-07-02] MEDS: HYDROcodone/Acetaminophen 5/325 mg Tablet PO PRN ×4 (04:11→19:32)
[2019-07-02] MEDS: Levothyroxine Sodium 50 MCG TAB PO SCH (05:12)
[2019-07-02] MEDS: Pregabalin 75 MG CAP PO SCH ×2 (08:23→19:31)
[2019-07-02] MEDS: DULoxetine 60 MG CAP PO SCH (08:24)
[2019-07-02] MEDS: Cilostazol 100 MG TAB PO SCH (08:24)
[2019-07-02] MEDS: Baclofen 10 MG TAB PO SCH ×2 (08:24→19:32)
[2019-07-02] MEDS: Lisinopril/Hydrochlorothiazide 10 mg/12.5 mg Tablet PO SCH (08:24)
[2019-07-02] MEDS: Acetaminophen/Codeine 30-300mg Tablet PO PRN (10:34)
[2019-07-02] MEDS: HumaLOG 300 UNITS/3 ML VIAL SC PRN ×3 (11:03→19:46)
--- NOTE | 2019-07-02 12:04 | PRG ---
DATE OF SERVICE: 07/02/2019 SUBJECTIVE: The patient is seen and examined at bedside. The patient has pain, which fluctuates about the level approximately 4 or 5 to 6. Her appetite is so-so. OBJECTIVE: VITAL SIGNS: Blood pressure is 124/69, pulse is 89, temperature is 97.7, respirations 20, and O2 saturation is 99% on room air. HEENT: Her head is atraumatic, normocephalic. Sclerae are nonicteric. NECK: Supple. LUNGS: Clear. HEART: S1, S2 normal. ABDOMEN: Soft, nontender, nondistended. EXTREMITIES: No clubbing, cyanosis, or edema. NEUROLOGICAL: She is alert and oriented x4. There is noticeable decreased motor function in both lower extremities along with some sensory impairment. The patient is following my commands. LABORATORY AND DIAGNOSTIC DATA: Glycemia is ranging from 136 to 262. Lumbar myelogram showed severe degenerative changes and multilevel postoperative change. IMPRESSION: 1. Low back pain with gait disturbance and bilateral leg pain and paresthesias with multilevel degenerative changes on myelogram CT. Neurosurgical consultation preliminary was done and we are waiting for Dr. Elmore to see the patient and make decision whether surgically she would benefit from any procedure or she would continue her PT at this point. 2. Diabetes mellitus. 3. Hypertension. 4. Hypothyroidism. 5. History of colon cancer, status post colectomy and chemotherapy. PLAN: The patient is going to continue PT and OT. She will be seen by Dr. Elmore on Friday. We will continue her p.r.n. hydrocodone. We will continue Accu-Cheks a.c. and at bedtime, and we will discontinue her IV fluids. Job ID: [id number]
--- NOTE | 2019-07-02 12:53 | PRG ---
DATE OF SERVICE: 07/02/2019 This is a 50-minute initial visit note, in which 50 minutes were spent reviewing the imaging record, evaluation, and examination of patient, formulation of plan. Greater than 50% of time was spent in counseling on Lise Hurley. Ms. Hurley is a very pleasant 73-year-old woman, who has been seen and operated multiple times by my colleague, Dr. Elmore. Most recently, she was going to be seen here this month in clinic for progressive paraparesis and leg pain. She has been in a facility for the last of couple months, has developed difficulty with standing and mobilization. Review of lumbar CT myelogram yesterday demonstrated construct that spans from L2-S1 bilaterally and left-sided from L1-L2 with abdominal connection. She does have evidence of what appears to be anterior middle column fracture at L1 and a fractured left L1 screw midshaft with severe spondylitic changes. Also of note, she has what appears to be severe stenosis at L1-L2 and what I suspect is at T11-T12 as well. That being said, there still does appear to be opacification of dye with dye getting through at L1-L2 around the nerve roots and at T11-T12. In talking with her today on exam, she is alert and appropriate. She is able to activate all of her myotomes, but is limited by pain. She has not stood yet with therapy and I have let her know that I have recommended they stop her Pletal and this will likely need to be out of her system for one week before consideration of potential surgery with Dr. Elmore. He has operated on her 5 times and certainly knows her case. I let her know that with her pain under better control now we can start working with physical therapy through the weekend and when Dr. Elmore returns on Friday, perhaps she could discuss with him if and when surgical intervention would be entertained. One option would be laminectomies at T11-T12 and L1-L2 with removal of the left L4 screw and bracing, but obviously I would defer to Dr. Elmore as he is well-versed in her case. Job ID: [id number]
[2019-07-02] MEDS: tiZANidine HCl 4 MG TAB PO PRN (14:12)
[2019-07-02] MEDS: Rosuvastatin 10 MG TAB PO SCH (19:32)
[2019-07-03] MEDS: HYDROcodone/Acetaminophen 5/325 mg Tablet PO PRN ×4 (02:45→18:11)
[2019-07-03] MEDS: tiZANidine HCl 4 MG TAB PO PRN ×3 (02:49→18:11)
[2019-07-03] MEDS: Levothyroxine Sodium 50 MCG TAB PO SCH (06:28)
[2019-07-03] MEDS: HumaLOG 300 UNITS/3 ML VIAL SC PRN ×4 (06:31→21:15)
[2019-07-03] MEDS: Cilostazol 100 MG TAB PO SCH (07:51)
[2019-07-03] MEDS: DULoxetine 60 MG CAP PO SCH (09:35)
[2019-07-03] MEDS: Baclofen 10 MG TAB PO SCH ×2 (09:35→19:41)
[2019-07-03] MEDS: Lisinopril/Hydrochlorothiazide 10 mg/12.5 mg Tablet PO SCH (09:37)
[2019-07-03] MEDS: Pregabalin 75 MG CAP PO SCH ×2 (09:39→19:41)
[2019-07-03] MEDS: traMADol HCl 50 MG TAB PO PRN (09:40)
[2019-07-03] MEDS: Senokot S 8.6-50 MG TAB PO PRN (09:40)
[2019-07-03] MEDS ORDERED: Dextrose 50% Abboject 50 ML SYRINGE SLOW IVP PRN (09:41)
[2019-07-03] MEDS ORDERED: Dextrose 5% in Water 1,000 ML IV PRN (09:41)
--- NOTE | 2019-07-03 10:01 | PRG ---
DATE OF SERVICE: 07/03/2019 SUBJECTIVE: The patient is seen and examined at bedside. She still has a lot of pain in her lower extremities especially when she starts moving. OBJECTIVE: VITAL SIGNS: Blood pressure is 116/72, pulse is 82, temperature is 97.7, respirations 16, O2 saturation is 99% on room air. HEENT: Head is atraumatic, normocephalic. Eyes are PERRLA. Sclerae are nonicteric. Oral mucosa is moist. NECK: Supple. LUNGS: Clear. HEART: S1, S2 normal. No S3. No S4. ABDOMEN: Soft, nontender, nondistended. Bowel sounds present. EXTREMITIES: No clubbing, cyanosis, or edema. NEUROLOGICAL: She is alert and oriented x4. There are no any motor deficits. There is some significant limitation of her range of motion secondary to the pain she has with that examination. She is alert and oriented x4. LABORATORY DATA: Glycemia is ranging from 202 to 259. IMPRESSION: 1. Low back pain with gait disturbance and bilateral leg pain and paresthesias with multilevel degenerative changes on myelogram CT. We are waiting for Dr. Elmore to see the patient on Friday. In the meantime, we are going to hold Pletal for possible neurosurgical intervention in the near future. I will intensify the pain management and continue PT. 2. Diabetes mellitus. The patient's glycemia is not controlled. I am going to put her back on her glipizide she was taking at home. We will continue sliding scale and her mild sliding scale will be changed to moderate. We will continue her PT and OT and we will await Dr. Elmore to evaluate the patient on Friday. Job ID: [id number]
[2019-07-03] MEDS: Polyethylene Glycol 3350 17 GM Packet PO SCH (18:46)
[2019-07-03] MEDS: Rosuvastatin 10 MG TAB PO SCH (19:41)
[2019-07-04] MEDS: tiZANidine HCl 4 MG TAB PO PRN ×3 (03:14→23:15)
[2019-07-04] MEDS: HYDROcodone/Acetaminophen 5/325 mg Tablet PO PRN ×5 (03:14→22:09)
[2019-07-04] MEDS: Levothyroxine Sodium 50 MCG TAB PO SCH (05:16)
[2019-07-04] MEDS: HumaLOG 300 UNITS/3 ML VIAL SC PRN ×4 (06:04→20:16)
[2019-07-04] MEDS: Cilostazol 100 MG TAB PO SCH (08:46)
[2019-07-04] MEDS: DULoxetine 60 MG CAP PO SCH (08:46)
[2019-07-04] MEDS: Senokot S 8.6-50 MG TAB PO PRN (08:47)
[2019-07-04] MEDS: Pregabalin 75 MG CAP PO SCH ×2 (08:49→20:18)
[2019-07-04] MEDS: Lisinopril/Hydrochlorothiazide 10 mg/12.5 mg Tablet PO SCH (08:50)
[2019-07-04] MEDS: Baclofen 10 MG TAB PO SCH ×2 (08:52→20:18)
--- NOTE | 2019-07-04 12:27 | PRG ---
DATE OF SERVICE: 07/04/2019 SUBJECTIVE: The patient is seen and examined at the bedside. She is still in a lot of pain. Her appetite is fair. OBJECTIVE: VITAL SIGNS: Blood pressure is 118/80, pulse is 80, respiratory rate is 16, temperature is 98.3, saturations 96% on room air. HEENT: Head is atraumatic and normocephalic. Eyes are PERRLA. Sclerae are nonicteric. Oral mucosa is moist. NECK: Supple. LUNGS: Clear. HEART: S1 and S2 normal. No S3. No S4. ABDOMEN: Soft, nontender, nondistended. EXTREMITIES: She is having a lot of pain given smallest movement of her both lower extremities all parts, but she is able to activate all muscles, but that is limited by the amount of pain she has. NEUROLOGIC: She is alert and oriented x4. There are no any motor deficits. LABORATORY DATA: Showed glycemia ranging from 89 to 306. IMPRESSION: 1. Low back pain with gait disturbance and bilateral leg pain and paresthesias with multilevel degenerative changes on myelogram CT. The patient is awaiting Dr. Elmore to come and evaluate her on Friday. Her Pletal was held yesterday and it stopped today completely for possible future surgical intervention. The patient is trying to participate in PT and OT sessions, but she is limited by a lot of pain. 2. Diabetes mellitus type 2. Her glycemia has significantly improved since yesterday when she was started on glipizide. 3. Hypertension, chronic, stable. 4. Hypothyroidism. She will continue her Synthroid for hypothyroidism replacement. 5. History of colon cancer, status post chemotherapy and colectomy. She is going to continue her current regimen. She is on muscle relaxant. She is on opioids orally. Job ID: [id number]
[2019-07-04 12:46] LABS: #Eosinphils 0.2 thou/uL (0.0-0.7); #Lymphocytes 1.1 thou/uL (1.20-3.40); #Monocytes 0.4 thou/uL (0.11-0.59); %Basophils 0.5 % (0.0-1.0); %Eosinophils 2.7 % (0.0-10.0); %Lymphocytes 15.8 % (21.0-51.0); %Monocytes 6.4 % (0.0-10.0); %Neutrophils 74.6 % (42.0-75.0); Hemoglobin 13.8 g/dL (12.0-16.0); Mean Corpuscular HGB CONC 34.6 g/dL (32.0-36.0); Mean Corpuscular Volume 95.4 fL (78.0-98.0); Platelet Count 189 thou/uL (130-400); RBC Distribution Width 13.1 % (11.5-14.5); Red Blood Cell (RBC) Count 4.18 mill/uL (4.20-5.40); White Blood Cell (WBC) Count 6.7 thou/uL (4.8-10.8)
[2019-07-04 13:05] LABS: Anion Gap 14 mmol/L (10-20); BUN (Urea Nitrogen) 18 mg/dL (9.8-20.1); Calc. Creatinine Clearance 72 mL/min (70-130); Calcium 9.5 mg/dL (7.8-10.44); Carbon Dioxide 25 mmol/L (23-31); Chloride 100 mmol/L (98-107); Estimated GFR-MDRD 66; Glucose 273 mg/dL (83-110); Sodium 135 mmol/L (136-145)
[2019-07-04] MEDS: Acetaminophen/Codeine 30-300mg Tablet PO PRN ×2 (14:25→21:16)
[2019-07-04] MEDS ORDERED: Polyethylene Glycol 3350 17 GM Packet PO SCH (15:00)
[2019-07-04] MEDS: Polyethylene Glycol 3350 17 GM Packet PO SCH (18:12)
[2019-07-04] MEDS: Rosuvastatin 10 MG TAB PO SCH (20:18)
[2019-07-04] MEDS: traMADol HCl 50 MG TAB PO PRN (22:11)
[2019-07-05] MEDS: HYDROcodone/Acetaminophen 5/325 mg Tablet PO PRN ×4 (02:40→20:08)
[2019-07-05] MEDS: traMADol HCl 50 MG TAB PO PRN ×2 (05:42→21:53)
[2019-07-05] MEDS: Levothyroxine Sodium 50 MCG TAB PO SCH (05:43)
[2019-07-05] MEDS: tiZANidine HCl 4 MG TAB PO PRN ×2 (05:43→18:02)
[2019-07-05] MEDS: DULoxetine 60 MG CAP PO SCH (08:50)
[2019-07-05] MEDS: Baclofen 10 MG TAB PO SCH ×2 (08:50→20:09)
[2019-07-05] MEDS: Pregabalin 75 MG CAP PO SCH ×2 (08:51→20:08)
[2019-07-05] MEDS: Lisinopril/Hydrochlorothiazide 10 mg/12.5 mg Tablet PO SCH (09:49)
[2019-07-05] MEDS: Acetaminophen/Codeine 30-300mg Tablet PO PRN ×2 (12:02→18:01)
[2019-07-05] MEDS: HumaLOG 300 UNITS/3 ML VIAL SC PRN (12:02)
--- NOTE | 2019-07-05 16:02 | PDOC.HOSPP ---
- Subjective Encounter Date: 07/05/19 Encounter Time: 15:59 Subjective: Ms. Lise Hurley was seen today in follow-up of lumbar spinal stenosis. She notes pain in both legs. She denies any chest pain or shortness of breath. She has not been very active at home since the start of back and leg pain. She has been undergoing physical therapy a few times a week. She denies any PND or Orthopnea. She has not climbed a flight of steps in years, but has been able to walk with a walker on level ground, and can climb about 6 steps into her daughter's house. She had spinal surgery a few years ago without incident. - Objective Vital Signs & Weight: Vital Signs (12 hours) Temp Pulse Resp BP BP Pulse Ox 07/05/19 12:00 98.2 F 87 16 123/71 100 07/05/19 09:49 75 110/63 07/05/19 07:50 97.8 F 75 16 110/65 93 L Weight Weight 167 lb 8.821 oz I&O: 07/04/19 07/05/19 07/06/19 06:59 06:59 06:59 Intake Total 1200 480 Output Total 800 1000 Balance 400 -520 Result Diagrams: 07/04/19 12:30 07/04/19 12:30 Additional Labs: Accuchecks 07/05/19 07/05/19 07/04/19 10:31 05:31 20:16 POC Glucose 259 H 136 H 264 H 07/04/19 15:38 POC Glucose 255 H Hospitalist ROS - Medication Medications: Active Medications Generic Name Dose Route Start Last Admin Trade Name Freq PRN Reason Stop Dose Admin Acetaminophen/Codeine Phosphate 1 tab 07/01/19 17:48 07/05/19 12:02 Tylenol #3 PO 1 tab Q6H PRN Administration Moderate Pain (4-6) Hydrocodone Bitart/Acetaminophen 1 tab 07/01/19 00:32 07/01/19 05:12 [place] 5/325 PO 1 tab Q4H PRN Administration Moderate Pain (4-6) Hydrocodone Bitart/Acetaminophen 2 tab 07/01/19 00:32 07/05/19 14:25 [place] 5/325 PO 2 tab Q4H PRN Administration Severe Pain (7-10) Baclofen 10 mg 07/01/19 21:00 07/05/19 08:50 Lioresal PO 10 mg BID MARCUS Administration Duloxetine HCl 60 mg 07/01/19 09:00 07/05/19 08:50 Cymbalta PO 60 mg QAM [facility] Administration Glipizide 10 mg 07/03/19 09:00 07/05/19 08:51 Glucotrol Xl PO 10 mg BID MARCUS Administration Lisinopril/HCTZ 1 tab 07/01/19 09:00 07/05/19 09:49 Prinizide 10-12.5 PO Not Given QAM MARCUS Insulin Human Lispro 0 units 07/01/19 00:35 07/04/19 20:16 Humalog SC 3 unit .BEDTIME SLIDING SC PRN Administration Bedtime Correctional Scale Insulin Human Lispro 0 units 07/03/19 09:41 07/05/19 12:02 Humalog SC 6 unit .MODERATE SLIDING SC PRN Administration Moderate Correctional Scale Levothyroxine Sodium 50 mcg 07/01/19 06:00 07/05/19 05:43 Synthroid PO 50 mcg 0600 [facility] Administration Pantoprazole Sodium 40 mg 07/01/19 09:00 07/05/19 08:50 Protonix PO 40 mg QAM [facility] Administration Polyethylene Glycol 17 gm 07/03/19 19:00 07/04/19 18:12 Miralax PO Not Given 1900 [facility] Pregabalin 75 mg 07/01/19 09:00 07/05/19 08:51 Lyrica PO 75 mg BID [facility] Administration Rosuvastatin Calcium 10 mg 07/01/19 21:00 07/04/19 20:18 Crestor PO 10 mg HS [facility] Administration Senna/Docusate Sodium 2 tab 07/01/19 00:32 07/04/19 08:47 Senokot S PO 2 tab BID PRN Administration Constipation Tizanidine HCl 4 mg 07/01/19 17:49 07/05/19 05:43 Zanaflex PO 4 mg TID PRN Administration Muscle Spasm Tramadol HCl 50 mg 07/01/19 17:50 07/05/19 05:42 Ultram PO 50 mg Q6H PRN Administration Moderate Pain (4-6) - Exam Eye: PERRL, anicteric sclera Heart: RRR, no murmur, no gallops, no rubs, normal peripheral pulses Respiratory: CTAB, no wheezes, no rales, no ronchi, normal chest expansion, no tachypnea, normal percussion Gastrointestinal: soft, non-tender, non-distended, normal bowel sounds, no palpable masses, no hepatomegaly Extremities: no cyanosis, no edema Hosp A/P (1) Lumbar stenosis with neurogenic claudication Code(s): M48.06 - SPINAL STENOSIS, LUMBAR REGION * DO NOT USE * Status: Acute (2) DM type 2 causing CKD stage 3 Code(s): E11.22 - TYPE 2 DIABETES MELLITUS W DIABETIC CHRONIC KIDNEY DISEASE; N18.3 - CHRONIC KIDNEY DISEASE, STAGE 3 (MODERATE) Status: Chronic (3) HTN (hypertension) Code(s): I10 - ESSENTIAL (PRIMARY) HYPERTENSION Status: Chronic Qualifiers: Hypertension type: essential hypertension Qualified Code(s): I10 - Essential (primary) hypertension (4) Colon cancer Code(s): C18.9 - MALIGNANT NEOPLASM OF COLON, UNSPECIFIED Status: Chronic - Plan * Lumbar Spinal stenosis- discussed with Dr. Elmore- he would like to proceed with surgical intervention * HTN- blood pressure is stable * DM- blood glucose is a bit elevated- however she is already on a fairly high dose of glucotrol, and she is an elderly patient- will continue with the current regimen for now- this likely should be changed to a different medication at discharge * Pre-op evaluation- she does not have a history of heart disease, ischemic or valvular. She does not endorse any symptoms of heart failure. However she has been relatively sedentary since her back problems, and it is therefore difficult to assess for exercise tolerance. Will check an EKG and request a previous EKG from her Primary Care Physician- Dr. Gilbert. Based on these findings will decide if she needs further cardiac work-up.
[2019-07-05] MEDS: Polyethylene Glycol 3350 17 GM Packet PO SCH (18:07)
[2019-07-05] MEDS: Rosuvastatin 10 MG TAB PO SCH (20:09)
[2019-07-06] MEDS: tiZANidine HCl 4 MG TAB PO PRN ×2 (00:35→17:43)
[2019-07-06] MEDS: Acetaminophen/Codeine 30-300mg Tablet PO PRN ×2 (00:36→16:37)
[2019-07-06] MEDS: HYDROcodone/Acetaminophen 5/325 mg Tablet PO PRN ×4 (02:48→21:55)
[2019-07-06] MEDS: Levothyroxine Sodium 50 MCG TAB PO SCH (05:50)
[2019-07-06] MEDS: HumaLOG 300 UNITS/3 ML VIAL SC PRN ×2 (05:57→16:37)
[2019-07-06] MEDS: traMADol HCl 50 MG TAB PO PRN (06:18)
[2019-07-06 08:16] LABS: #Basophils 0.1 thou/uL (0.0-0.2); #Eosinphils 0.2 thou/uL (0.0-0.7); #Lymphocytes 1.5 thou/uL (1.20-3.40); #Monocytes 0.5 thou/uL (0.11-0.59); #Neutrophils 3.2 thou/uL (1.40-6.50); %Basophils 1.9 % (0.0-1.0); %Eosinophils 4.1 % (0.0-10.0); %Lymphocytes 27.2 % (21.0-51.0); %Monocytes 9.5 % (0.0-10.0); %Neutrophils 57.4 % (42.0-75.0); Hemoglobin 14.2 g/dL (12.0-16.0); Mean Corpuscular HGB CONC 32.5 g/dL (32.0-36.0); Mean Corpuscular Volume 98.4 fL (78.0-98.0); Mean Platelet Volume 9.2 fL (7.4-10.4); Platelet Count 198 thou/uL (130-400); RBC Distribution Width 13.3 % (11.5-14.5); Red Blood Cell (RBC) Count 4.43 mill/uL (4.20-5.40); White Blood Cell (WBC) Count 5.7 thou/uL (4.8-10.8)
[2019-07-06 08:31] LABS: Anion Gap 17 mmol/L (10-20); BUN (Urea Nitrogen) 20 mg/dL (9.8-20.1); Calc. Creatinine Clearance 77 mL/min (70-130); Calcium 9.9 mg/dL (7.8-10.44); Carbon Dioxide 19 mmol/L (23-31); Chloride 103 mmol/L (98-107); Estimated GFR-MDRD 72; Glucose 149 mg/dL (83-110); Potassium 4.5 mmol/L (3.5-5.1); Sodium 134 mmol/L (136-145)
[2019-07-06] MEDS ORDERED: CEFAZOLIN 2 GM in Premix Bag 1 BAG IVPB SCH ×2 (09:00→16:00)
[2019-07-06] MEDS ORDERED: Fentanyl 100 MCG/2 ML VIAL ONE ×3 (09:25→11:46)
[2019-07-06] MEDS ORDERED: HYDROmorphone 0.5 MG/0.5 ML SYRINGE ONE (09:25)
[2019-07-06] MEDS ORDERED: Ondansetron PF 4 MG/2 ML Vial ONE (09:39)
[2019-07-06] MEDS ORDERED: Esmolol 100 MG/10 ML VIAL ONE (09:39)
[2019-07-06] MEDS ORDERED: Labetalol HCl 100 MG/20 ML VIAL ONE (09:39)
[2019-07-06] MEDS ORDERED: PROPOFOL 200 MG/20 ML VIAL ONE (09:39)
[2019-07-06] MEDS ORDERED: Glycopyrrolate 0.2 MG/ML 5 ML SYRINGE ONE (09:39)
[2019-07-06] MEDS ORDERED: Rocuronium Bromide 10 MG/ML (10ML VIAL) ONE (09:39)
[2019-07-06] MEDS ORDERED: Lidocaine 1% PF 5 ML VIAL ONE (09:39)
[2019-07-06] MEDS: Baclofen 10 MG TAB PO SCH ×2 (10:45→21:17)
[2019-07-06] MEDS: DULoxetine 60 MG CAP PO SCH (10:45)
[2019-07-06] MEDS: Pregabalin 75 MG CAP PO SCH ×2 (10:46→21:17)
[2019-07-06] MEDS: Lisinopril/Hydrochlorothiazide 10 mg/12.5 mg Tablet PO SCH (10:46)
[2019-07-06] MEDS ORDERED: Morphine 4 MG/ML VIAL ONE ×2 (12:09→12:35)
[2019-07-06] MEDS ORDERED: Morphine 2 MG/ML SYRINGE ONE (12:19)
[2019-07-06] MEDS ORDERED: Non-Formulary Medication 1 EACH PO PRN (12:57)
[2019-07-06] MEDS ORDERED: Ondansetron HCl/PF 4 MG/2 ML Vial IVP PRN (12:57)
[2019-07-06] MEDS ORDERED: Morphine Sulfate 2 MG/ML SYRINGE SLOW IVP PRN (12:57)
[2019-07-06] MEDS ORDERED: Promethazine HCl 25 MG/ML VIAL IM/IV PRN (12:57)
[2019-07-06] MEDS ORDERED: PACU-Morphine 4MG/ML VIAL SLOW IVP PRN (12:57)
--- NOTE | 2019-07-06 13:06 | OP ---
DATE OF PROCEDURE: 07/06/2019 [employer] REPRESENTATIVE: Nina Mckoy PA-C PROCEDURES PERFORMED: Exploration of spinal fusion L1-L2, posterior laminectomy T11 through L2. DESCRIPTION OF PROCEDURE: The patient was brought to the operating room and intubated. She was rolled in a prone position on gel-filled chest rolls. An incision was made exposing T11 through L2 and the level was confirmed by x-ray. We identified the previous hardware on the left and we found that the left L1 screw was completely encased in bone. Therefore, by exploring the spinal fusion, we found it to be solid and did not attempt to remove or replace any hardware. We next performed complete T11, complete T12, complete L1, and superior L2 laminectomies. At L2, there was mostly scar; but at L1, there was residual bone for laminectomy. A complete decompression at these levels was achieved. The wound was then extensively irrigated and MAC hemostasis was secured. Vancomycin powder was applied and the wound was closed in anatomic layers over drain. Job ID: [id number]
--- NOTE | 2019-07-06 16:11 | PDOC.HOSPP ---
- Subjective Encounter Date: 07/06/19 Encounter Time: 16:09 Subjective: Ms. Hurley was seen today in follow-up of lumbar spinal stenosis. she is post lumbar laminectomy. She notes some pain in her back which she rates a 5/10. Otherwise she denies chest pain or dyspnea, no nausea or vomiting. - Objective Vital Signs & Weight: Vital Signs (12 hours) Temp Pulse Resp BP Pulse Ox 07/06/19 13:15 96 07/06/19 10:46 80 07/06/19 07:40 97.8 F 80 18 138/80 98 07/06/19 07:30 98 Weight Weight 167 lb 8.821 oz I&O: 07/05/19 07/06/19 07/07/19 06:59 06:59 06:59 Intake Total 1200 980 Output Total 800 2200 Balance 400 -1220 Result Diagrams: 07/06/19 08:01 07/06/19 08:01 Additional Labs: Accuchecks 07/06/19 07/06/19 07/05/19 15:37 05:24 21:21 POC Glucose 181 H 247 H 236 H 07/05/19 20:16 POC Glucose 205 H Hospitalist ROS - Medication Medications: Active Medications Generic Name Dose Route Start Last Admin Trade Name Freq PRN Reason Stop Dose Admin Acetaminophen/Codeine Phosphate 1 tab 07/01/19 17:48 07/06/19 00:36 Tylenol #3 PO 1 tab Q6H PRN Administration Moderate Pain (4-6) Hydrocodone Bitart/Acetaminophen 1 tab 07/01/19 00:32 07/01/19 05:12 [place] 5/325 PO 1 tab Q4H PRN Administration Moderate Pain (4-6) Hydrocodone Bitart/Acetaminophen 2 tab 07/01/19 00:32 07/06/19 13:28 [place] 5/325 PO 2 tab Q4H PRN Administration Severe Pain (7-10) Baclofen 10 mg 07/01/19 21:00 07/06/19 10:45 Lioresal PO Not Given BID MARCUS Duloxetine HCl 60 mg 07/01/19 09:00 07/06/19 10:45 Cymbalta PO Not Given QAM [facility] Glipizide 10 mg 07/03/19 09:00 07/06/19 10:45 Glucotrol Xl PO Not Given BID MARCUS Lisinopril/HCTZ 1 tab 07/01/19 09:00 07/06/19 10:46 Prinizide 10-12.5 PO Not Given QAM [facility] Insulin Human Lispro 0 units 07/01/19 00:35 07/04/19 20:16 Humalog SC 3 unit .BEDTIME SLIDING SC PRN Administration Bedtime Correctional Scale Insulin Human Lispro 0 units 07/03/19 09:41 07/06/19 05:57 Humalog SC 4 unit .MODERATE SLIDING SC PRN Administration Moderate Correctional Scale Levothyroxine Sodium 50 mcg 07/01/19 06:00 07/06/19 05:50 Synthroid PO 50 mcg 0600 MARCUS Administration Pantoprazole Sodium 40 mg 07/01/19 09:00 07/06/19 10:46 Protonix PO Not Given QAM [facility] Polyethylene Glycol 17 gm 07/03/19 19:00 07/05/19 18:07 Miralax PO Not Given 1900 [facility] Pregabalin 75 mg 07/01/19 09:00 07/06/19 10:46 Lyrica PO Not Given BID [facility] Rosuvastatin Calcium 10 mg 07/01/19 21:00 07/05/19 20:09 Crestor PO 10 mg HS MARCUS Administration Senna/Docusate Sodium 2 tab 07/01/19 00:32 07/04/19 08:47 Senokot S PO 2 tab BID PRN Administration Constipation Tizanidine HCl 4 mg 07/01/19 17:49 07/06/19 00:35 Zanaflex PO 4 mg TID PRN Administration Muscle Spasm Tramadol HCl 50 mg 07/01/19 17:50 07/06/19 06:18 Ultram PO 50 mg Q6H PRN Administration Moderate Pain (4-6) - Exam Eye: PERRL Heart: RRR, no murmur, no gallops, no rubs, normal peripheral pulses Respiratory: CTAB, no wheezes, no rales, no ronchi, normal chest expansion, no tachypnea, normal percussion Gastrointestinal: soft, non-tender, non-distended, normal bowel sounds, no palpable masses, no hepatomegaly Extremities: no cyanosis, no edema Hosp A/P (1) Lumbar stenosis with neurogenic claudication Code(s): M48.06 - SPINAL STENOSIS, LUMBAR REGION * DO NOT USE * Status: Acute (2) DM type 2 causing CKD stage 3 Code(s): E11.22 - TYPE 2 DIABETES MELLITUS W DIABETIC CHRONIC KIDNEY DISEASE; N18.3 - CHRONIC KIDNEY DISEASE, STAGE 3 (MODERATE) Status: Chronic (3) HTN (hypertension) Code(s): I10 - ESSENTIAL (PRIMARY) HYPERTENSION Status: Chronic Qualifiers: Hypertension type: essential hypertension Qualified Code(s): I10 - Essential (primary) hypertension (4) Colon cancer Code(s): C18.9 - MALIGNANT NEOPLASM OF COLON, UNSPECIFIED Status: Chronic - Plan * Lumbar Spinal stenosis- she is post thoracic and lumbar laminectomy- and clinically stable * HTN- blood pressure is stable * DM- blood glucose - continue glipizide and SSI * PT/OT as per Neurosurgery * Symptom management
[2019-07-06] MEDS: CEFAZOLIN 2 GM in Premix Bag 1 BAG IVPB SCH (16:41)
[2019-07-06] MEDS: Polyethylene Glycol 3350 17 GM Packet PO SCH (17:43)
[2019-07-06] MEDS: Rosuvastatin 10 MG TAB PO SCH (21:16)
[2019-07-07] MEDS: CEFAZOLIN 2 GM in Premix Bag 1 BAG IVPB SCH ×3 (00:25→17:19)
[2019-07-07] MEDS: Levothyroxine Sodium 50 MCG TAB PO SCH (06:13)
[2019-07-07] MEDS: HYDROcodone/Acetaminophen 5/325 mg Tablet PO PRN ×5 (06:14→21:57)
[2019-07-07] MEDS: HumaLOG 300 UNITS/3 ML VIAL SC PRN ×4 (06:35→21:32)
--- NOTE | 2019-07-07 07:08 | PRG ---
DATE OF SERVICE: 07/07/2019 The patient is now postoperative day #1, status post T11-L2 decompression. Following the surgery, she was transitioned to the Med/Surg floor. She has had some issues with back pain, but denies any significant leg symptoms. This is improved with the [place]. She is not mobilized much, but she is moving her legs easily in the bed. She had the YONG drain in place and had 90 mL out overnight. On exam this morning, the patient is awake, alert, in no acute distress. She has good strength with dorsiflexion and plantarflexion. She is still slightly weak proximally but is able to flex at the knees and slightly lift the legs off the bed. We will leave the YONG drain in place. She should continue her IV antibiotics. We will have her work with Physical Therapy. I anticipate back to [facility] over the next few days, but we will continue to work on mobilizing and pain control appropriately. Job ID: [id number]
[2019-07-07] MEDS: traMADol HCl 50 MG TAB PO PRN (08:45)
[2019-07-07] MEDS: DULoxetine 60 MG CAP PO SCH (08:46)
[2019-07-07] MEDS: Pregabalin 75 MG CAP PO SCH ×2 (08:46→21:29)
[2019-07-07] MEDS: Lisinopril/Hydrochlorothiazide 10 mg/12.5 mg Tablet PO SCH (08:46)
[2019-07-07] MEDS: Baclofen 10 MG TAB PO SCH ×2 (08:46→21:28)
[2019-07-07] MEDS: tiZANidine HCl 4 MG TAB PO PRN (11:15)
--- NOTE | 2019-07-07 13:12 | PRG ---
DATE OF SERVICE: 07/07/2019 Ms. Hurley is doing quite well, postop day 1. Pain control remains an issue. Her leg pain does seem to be improved. I anticipate gradual recovery and we can begin plans for rehab or SNF. We will leave the drain for one more day. Job ID: [id number]
[2019-07-07] MEDS: Polyethylene Glycol 3350 17 GM Packet PO SCH (17:20)
[2019-07-07] MEDS: Senokot S 8.6-50 MG TAB PO PRN (18:36)
[2019-07-07] MEDS: Rosuvastatin 10 MG TAB PO SCH (21:28)
[2019-07-08] MEDS: CEFAZOLIN 2 GM in Premix Bag 1 BAG IVPB SCH (01:07)
[2019-07-08] MEDS: traMADol HCl 50 MG TAB PO PRN ×2 (01:27→12:42)
[2019-07-08] MEDS: HYDROcodone/Acetaminophen 5/325 mg Tablet PO PRN ×3 (05:52→15:07)
[2019-07-08] MEDS: Levothyroxine Sodium 50 MCG TAB PO SCH (05:53)
[2019-07-08] MEDS: HumaLOG 300 UNITS/3 ML VIAL SC PRN ×2 (06:06→11:38)
--- NOTE | 2019-07-08 07:55 | PRG ---
DATE OF SERVICE: 07/08/2019 The patient is now postoperative day #2, status post T11 through L2 laminectomy. Her pain is improved since yesterday. She was not able to work much with PT and has been slow to mobilize secondary to pain. She did have a YONG placed intraoperatively, which has had input trending downward nicely. Overnight, it had 20 mL out. She continues to have urinary incontinence, but this is being ongoing for some time before her arrival to our facility. On exam, she is awake, alert, in no acute distress. She is moving her legs easily in the bed. Some slight weakness proximally persists. Her incision is clean, dry, and intact. YONG drain has small amount of dark red blood in the bulb. I have removed YONG drain at the bedside. We will discontinue her IV Ancef. We will ask PT to visit with her again today since her pain is better and hopefully, we will mobilize her a bit more today. If mobilizes well with PT this am she may be able to [facility] today. Job ID: [id number] [facility]
[2019-07-08] MEDS: Acetaminophen/Codeine 30-300mg Tablet PO PRN (08:59)
[2019-07-08] MEDS: Lisinopril/Hydrochlorothiazide 10 mg/12.5 mg Tablet PO SCH (09:00)
[2019-07-08] MEDS ORDERED: Alogliptin 6.25 MG TAB PO SCH (09:00)
[2019-07-08] MEDS: Baclofen 10 MG TAB PO SCH (09:01)
[2019-07-08] MEDS: Pregabalin 75 MG CAP PO SCH (09:02)
[2019-07-08] MEDS: DULoxetine 60 MG CAP PO SCH (09:02)
[2019-07-08] MEDS: Senokot S 8.6-50 MG TAB PO PRN (09:02)
[2019-07-08 10:50] VITALS: BP 123/68; TEMP 98.5
--- NOTE | 2019-07-09 03:43 | DIS ---
DATE OF ADMISSION: 07/02/2019 DATE OF DISCHARGE: 07/08/2019 PRIMARY CARE PHYSICIAN: Selam Gilbert MD. DISCHARGE DISPOSITION: Home. DISCHARGE DIAGNOSES: 1. 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 2. Diabetes mellitus type 2. 3. Hypertension. 4. Obesity with a BMI of 37. 5. Hyperlipidemia. 6. Hypothyroidism. DISCHARGE MEDICATIONS: Include; 1. Tizanidine 4 mg t.i.d. 2. [place] 10/325 q.4 as needed. 3. Baclofen 10 mg twice daily. 4. Crestor 10 mg at bedtime. 5. Lyrica 75 mg p.o. b.i.d. 6. Protonix 40 mg daily. 7. Lisinopril/hydrochlorothiazide 10/12.5 mg daily. 8. Levothyroxine 50 mcg p.o. daily. 9. Glucotrol 10 mg twice a day. 10. Jardiance 25 mg daily. 11. Cymbalta 60 mg daily. 12. Pletal 100 mg daily. PROCEDURES DONE DURING ADMISSION: The patient had a CT myelogram showing severe multilevel degenerative joint disease with evidence of significant spinal stenosis at the L2 level and osteophyte formation at T11 to T12. The patient also had an exploration of the spinal fusion with posterior laminectomies of T11 through L2. CODE STATUS: Full code. ALLERGIES: NO KNOWN DRUG ALLERGIES. HOSPITAL COURSE: Ms. Hurley is a pleasant 73-year-old female, who was admitted to the hospital after having severe lower back pain and also urinary incontinence. The full details of which are outlined in the History and Physical. She was admitted to the hospital and Neurosurgery was consulted. She underwent a CT myelogram of the lumbar spine and it was found that she had significant spinal stenosis in the lumbar area. After she was off Pletal for several days, she underwent lower thoracic and lumbar laminectomy with good results and she was subsequently discharged to the inpatient rehab. Job ID: [id number]
== END 2019-07-08 15:30 | DRG 517 ==
LOC: ERS 16:11 → SURG A 20:36 → OBSVTOIN 07-02 10:11
PROVIDERS: ADMIT Internal Medicine Sleep Medicine; ATTEND Internal Medicine
PROC: 01N80ZZ Release Thoracic Nerve, Open Approach (ICD-10-PCS; principal; 2019-07-06)
PROC: 01NB0ZZ Release Lumbar Nerve, Open Approach (ICD-10-PCS; 2019-07-06)
DX: M48.062 Spinal stenosis, lumbar region with neurogenic claudication (principal); M51.36 Other intervertebral disc degeneration, lumbar region; R32 Unspecified urinary incontinence; G62.9 Polyneuropathy, unspecified; E03.9 Hypothyroidism, unspecified; E78.5 Hyperlipidemia, unspecified; M48.04 Spinal stenosis, thoracic region; E11.65 Type 2 diabetes mellitus with hyperglycemia; E11.22 Type 2 diabetes mellitus with diabetic chronic kidney disease; N18.3 Chronic kidney disease, stage 3 (moderate); G89.29 Other chronic pain; I10 Essential (primary) hypertension; Z85.038 Personal history of other malignant neoplasm of large intestine; Z99.3 Dependence on wheelchair; Z90.49 Acquired absence of other specified parts of digestive tract; Z98.51 Tubal ligation status; Z79.890 Hormone replacement therapy; Z79.84 Long term (current) use of oral hypoglycemic drugs; Z79.899 Other long term (current) drug therapy
CPT/HCPCS: 36415; 36416; 62304; 72132; 76000; 80048; 80053; 81003; 84443; 85025; 85610; 85652; 85730; 86140; 93005; 93010; 96374; 96375; 96376; J0690; J1170; J2001; J2270; J2405; J2704; J3010; J3370; J3490; Q9966